=== PATIENT | female | born 1965 | race Caucasian/White ===

== ENCOUNTER 2016-09-01 09:13 | Emergency (ER) | payer MEDICAID ==
[~2016-09-01] VITALS: Ht 165.1 cm; Wt 86.0 kg
[~2016-09-01 09:13] MED LIST: ERYT1OIN6 BOTH EYES; IBUP800T25 PO
[2016-09-01 09:25] VITALS: Ht 165.1 cm; Wt 86.0 kg
[2016-09-01] MEDS ORDERED: ERYTOPOI BOTH EYES (10:49)
[2016-09-01] MEDS ORDERED: BEN50 PO (10:50)
[2016-09-01] MEDS ORDERED: CETI10CA PO (10:50)
[2016-09-01] MEDS ORDERED: CROM10DR6 BOTH EYES (10:50)
--- NOTE | 2016-09-01 10:56 | ERD ---
ER Documentation Chief Complaint Date/Time DATE: 09/01/16 TIME: 10:51 Chief Complaint b/l eye swelling and itching x 1 week HPI Patient is a 51-year-old female who presents to the emergency department with bilateral eye swelling and itching 1 week. Patient states that her bilateral swelling is worse in the mornings. Patient denies any new creams or products. Patient states that her eyes are erythematous. Patient states that she does have tearing often. Patient does report rubbing her eyes frequently. Patient denies any eye pain. Patient denies any foreign bodies. Patient denies any blurry vision, loss of vision or headaches. Patient denies any fevers, chills, nausea, vomiting, rhinorrhea or cough. Patient states that she has tried Claritin however it makes her jittery thus she does not take it. Patient states that she has had similar symptoms in the past which resolved after using erythromycin eye ointment. Patient is requesting erythromycin ointment at this time. ROS All systems reviewed and are negative except as per history of present illness. Medications Home Meds Active Scripts Cetirizine Hcl* (Zyrtec*) 10 Mg Capsule, 10 MG PO DAILY, #20 TAB.CHEW Prov:LOVE CASAS PA-C 09/01/16 Diphenhydramine Hcl* (Benadryl*) 50 Mg Cap, 50 MG PO Q6 Y for ALLERGIC REACTION , #30 CAP Prov:LOVE CASAS-Richard 09/01/16 Cromolyn Sodium* (Cromolyn Sodium*) 4% - 10 Ml Drops, 1 DROP BOTH EYES QID, #1 EA Prov:LOVE CASASC 09/01/16 Erythromycin* (Erythromycin* Ophthalmic) 1 Applic Oint, 1 APPLIC BOTH EYES QID for 7 Days, EA Prov:LOVE CASAS-C 09/01/16 Ibuprofen* (Motrin*) 800 Mg Tab, 800 MG PO Q8 Y for PAIN AND OR ELEVATED TEMP, # 30 TAB Prov:CHAPIN PERSAUD BROMINATION EQUIPMENT OPERATOR 12/01/15 Erythromycin (Erythromycin Opth) 3.5 Gm Oint..gm., 1 APPLIC BOTH EYES QID for 7 Days, EA Prov:EAGLE TRENT BROMINATION EQUIPMENT OPERATOR 09/08/15 Allergies Allergies: Coded Allergies: No Known Allergy (Unverified , 4/9/16) PMhx/Soc History of Surgery: Yes (hysterectomy) Anesthesia Reaction: No Hx Neurological Disorder: No Hx Respiratory Disorders: No Hx Cardiac Disorders: No Hx Psychiatric Problems: No Hx Miscellaneous Medical Probl: No Hx Alcohol Use: No Hx Substance Use: No Hx Tobacco Use: Yes (1-2 cig/ day) Smoking Status: Never smoker FmHx Family History: No diabetes Physical Exam Vitals Vital Signs Date Time Temp Pulse Resp B/P Pulse Ox O2 Delivery O2 Flow Rate FiO2 09/01/16 09:25 98.2 66 18 134/61 98 Physical Exam GENERAL: Well-developed, well-nourished female. Appears in no acute distress. Speaking in full sentences HEAD: Normocephalic, atraumatic. No deformities or ecchymosis. EYE: Pupils equal, round, and reactive to light. EOMs intact. Bilateral conjunctival erythema. Minimal tearing noted. Minimal lower eyelid swelling noted bilaterally. ENT: External ear without any masses or tenderness. Auditory canals clear bilaterally. TM visualized bilaterally, non-erythematous, non-bulging. Nasal mucosa pink with no discharge. Oropharynx is pink without any tonsillar erythema or exudates. No uvula deviation. No kissing tonsils. NECK: Supple. No meningismus. Normal ROM of the neck. LUNG: Clear to auscultation bilaterally. No rhonchi, wheezing, rales or coarse breath sounds. HEART: Regular rate and rhythm. No murmurs, rubs or gallops. BACK: No midline tenderness. EXTREMITES: Equal pulses bilaterally. No peripheral clubbing, cyanosis or edema. No unilateral leg swelling. NEUROLOGIC: Alert and oriented to person, place and time. Moving all four extremities. 5/5 strength in all extremities. Normal speech. Steady gait. SKIN: Normal color. Warm and dry. No rashes or lesions. Procedures/MDM MEDICAL DECISION MAKING: This is a 51-year-old female who presents with bilateral eyelid swelling, bilateral erythema of the eyes, tearing 1 week. Vital signs were reviewed. Patient was afebrile. Patient was not hypoxic. Eye exam revealed minimal swelling of the bilateral lower eyelids, erythema of bilateral conjunctiva. Given these findings, the patient's presentation is most consistent with allergic conjunctivitis. I have a much lower clinical concern for bacterial conjunctivitis, corneal abrasion, corneal ulcer, retained eye foreign body, glaucoma, periorbital cellulitis, orbital cellulitis, hordeolum, dacrocystitis. Patient was adamant about receiving erythromycin antibiotic ointment given that this is helped her in the past and she states that she has similar eyelid swelling at this time. I will give the patient a prescription of erythromycin antibiotic ointment to use per patient's request, despite my low suspicion for bacterial conjunctivitis. Patient was advised to first try cromolyn eyedrops prior to using the erythromycin ointment. Patient agrees with this plan. Patient was advised she may need to follow-up with an technical implementation lead/eye care professional given that her symptoms have been ongoing. PRESCRIPTIONS: Zyrtec, Benadryl, Chromelin sodium eyedrops, erythromycin ointment. DISCHARGE: At this time, patient is stable for discharge and outpatient management. Supportive measures were discussed with patient including warm/cool compresses. Patient advised not to wear contact lenses or eye makeup. I have instructed the patient to follow-up with his/her primary care physician in 1-2 days. I have discussed with the patient the possibility of needing to see an eye care professional for further workup if symptoms persist. I have instructed the patient to promptly return to the ER for any new or worsening symptoms including increased pain, fever, swelling, redness, warmth, nausea, vomiting, . The patient and/or family expressed understanding of and agreement with this plan. All questions were answered. Home care instructions were provided. Departure Diagnosis: Primary Impression: Allergic conjunctivitis Laterality: bilateral Qualified Code: H10.13 - Allergic conjunctivitis, bilateral Condition: Stable Patient Instructions: Conjunctivitis, Allergic Referrals: [facility] YOU HAVE RECEIVED A MEDICAL SCREENING EXAM AND THE RESULTS INDICATE THAT YOU DO NOT HAVE A CONDITION THAT REQUIRES URGENT TREATMENT IN THE EMERGENCY DEPARTMENT. FURTHER EVALUATION AND TREATMENT OF YOUR CONDITION CAN WAIT UNTIL YOU ARE SEEN IN YOUR DOCTORS OFFICE WITHIN THE NEXT 1-2 DAYS. IT IS YOUR RESPONSIBILITY TO MAKE AN APPOINTMENT FOR FOLOW-UP CARE. IF YOU HAVE A PRIMARY DOCTOR --you should call your primary doctor and schedule an appointment IF YOU DO NOT HAVE A PRIMARY DOCTOR YOU CAN CALL OUR PHYSICIAN REFERRAL HOTLINE AT IF YOU CAN NOT AFFORD TO SEE A PHYSICIAN YOU CAN CHOSE FROM THE FOLLOWING [facility] [address] [facility]. [facility] [address] [facility] [address] [facility] [address] [facility] [address] [facility]. [facility] [address] [facility]. [facility] YOU HAVE RECEIVED A MEDICAL SCREENING EXAM AND THE RESULTS INDICATE THAT YOU DO NOT HAVE A CONDITION THAT REQUIRES URGENT TREATMENT IN THE EMERGENCY DEPARTMENT. FURTHER EVALUATION AND TREATMENT OF YOUR CONDITION CAN WAIT UNTIL YOU ARE SEEN IN YOUR DOCTORS OFFICE WITHIN THE NEXT 1-2 DAYS. IT IS YOUR RESPONSIBILITY TO MAKE AN APPOINTMENT FOR FOLOW-UP CARE. IF YOU HAVE A PRIMARY DOCTOR --you should call your primary doctor and schedule and appointment IF YOU DO NOT HAVE A PRIMARY DOCTOR YOU CAN CALL OUR PHYSICIAN REFERRAL HOTLINE AT . IF YOU CAN NOT AFFORD TO SEE A PHYSICIAN YOU CAN CHOSE FROM THE FOLLOWING [facility] INSTITUTIONS: [facility] [address] [place] [address] [facility] [address] [place] [address] [facility] [address] [place] [address] [facility] Additional Instructions: Call your primary care doctor TOMORROW for an appointment during the next 1-2 days.See the doctor sooner or return here if your condition worsens before your appointment time. Patient may need to follow up with an technical implementation lead to determine her cause of her ongoing allergies. LOVE CASAS PA-C Sep 01, 2016 10:56
== END 2016-09-01 11:11 | disposition home or self-care (01) ==
LOC: FTE 09:13
DX: H10.13 Acute atopic conjunctivitis, bilateral (principal); F17.210 Nicotine dependence, cigarettes, uncomplicated
CPT/HCPCS: 99284